=== PATIENT | male | born 1960 | race Caucasian/White ===

== ENCOUNTER 2018-09-15 11:00 | Outpatient (RCR) ==
--- NOTE | 2018-08-31 14:42 | RS.OPPTEV2 ---
Date of Note: 08/31/18 Visit #: 1 Number of visits approved by Insurance: n/a Date of Evaluation: 08/31/18 Payer Source: Insurance Surgery Performed?: No Treatment Diagnosis: Low back pain radiating into R hip History of Condition/Mechanism of Injury:: pt presents with low back pain that began 07/27/18, pt has a history of episodes of LBP over the last few years. Prior Level of Function.....Patient was independent with: ADL's, Self Care, Work /Vocation, Ambulation/Mobility, Community Integration/Access Level of Function: pt works at the [employer] Functional Limitations: Sitting, Standing, Bending, Squatting, Ambulation Current Subjective/complaints:: pt reports his LBP "flared up" 07/27/18 and has continued to increase. pt reports pain increases if sits or stands too long. Reports he has a desk at work that will elevate so that he can work while standing or sitting to help LBP. Treatment Side (optional): N/A *Precautions: n/a Medical History Medical History: Hypertension, Cancer (thyroid) Medical History Comments:: R acetabular fx (as a young teenager) Smoking Status: Current some day smoker Hx Home Medications: zyrtec, omeprazol, BP meds, synthroid, diclofenac, norco, Patient's Goals: decrease low back pain Pain Assessment - Pain Description Pain Location: lumbar radiating into R hip Pain Description: Burning, Aching Current Pain Intensity: 7/10 Worst Pain Intensity: 10/10 Functional Outcome Measure Oswestry LBP: 28 - G Codes & Severity Modifier G Codes & Modifier: n/a Source of G Code score: n/a Observation - Observation Inspection: R LE ext rotates. BLE hamstring tightness R worse than L. BLE piriformis tightess L worse than R Posture: Forward Head, Rounded Shoulders, Increased Thoracic Kyphosis, Decreased Lumbar Lordosis Handedness: Right Gait - Gait Pattern General Gait Pattern Observation: No Deviations/Normal General Range of Motion: BUE WFL's. BLE WFL's Muscle Strength: BUE 5/5. BLE hip flex 5/5 with discomfort, knee flex/ext 5/5 - ROM Lumbar Flexion: Hand reach to patellae Sidebending to Left: Reach to Lateral Joint Line Sidebending to Right: Reach to Mid-thigh Lumbar Spine ROM Limitations: Soft Tissue Tightness, Muscle Weakness, Pain - Strength Trunk Extension: 4- Good- Trunk Flexion: 4- Good- Trunk Lateral Flexion: 4- Good- Trunk Rotation: 4- Good- - Special Tests MEME Test: Positive Left, Positive Right Seated Dural Stretch Test: Positive Left, Positive Right Comments: + hip scour on RLE Palpation Palpation Findings: Tenderness, Trigger Point, Muscle Guarding Comments:: pt with tenderness lumbar area with muscle guarding also noted. Trigger points noted to R lumbar area. Sensation - Sensation Right Upper Extremity: Intact/Normal Left Upper Extremity: Intact/Normal Right Lower Extremity: Intact/Normal Left Lower Extremity: Intact/Normal Balance - Sitting Balance Static Sitting Balance: Normal Dynamic Sitting Balance: Normal - Standing Balance Static Standing Balance: Normal Dynamic Standing Balance: Normal - Treatment Modality: Electrical Stim Unattended Parameters/Method Applied: IFC x 20 mins at 10 ma Treatment Area: lumbar Patient Position: Sitting - Heat/Cryotherapy Treatment: Hot Pack Comments:: with IFC to lumbar Interventions - Exercise/Activities/Manual Therapy Exercises/Activities: pt performed BLE piriformis stretch, hamstring stretch, standing lumbar extension Manual Therapy: n/a HOME EXERCISE PROGRAM: pt given written HEP including: pelvic tilt, hamstring stretch, piriformis stretch, standing lumbar ext - Charges Timed Code Treatment Minutes: 46 Total Treatment Time: 64 Procedures billed for this date of service:: eval low, estim unattended, hot pack EVALUATION COMPLEXITY LEVEL EVALUATION COMPLEXITY LEVEL: HISTORY: Low, EXAM OF BODY SYSTEMS: Medium, CLINICAL PRESENTATION: Low, CLINICAL DECISION MAKING: Low Assessment Assessment: pt presents with lumbar pain radiating into R hip, with muscle tightness, guarding and trigger points. pt also with muscle weakness. Feel pt would benefit from skilled PT for therex stretching, strengthening, as well as modalities to decrease pain and muscle tightness. Patient Education: Home Exercise Program, Education of Plan of Care Rehab Potential: Good Short Term Goals Goal #1: pt independent with initial HEP Goal to be met by: 09/21/18 Goal #2: Decrease LBP < 7/10 Goal to be met by: 09/21/18 Goal #3: Improve lumbar ROM w less pain Goal to be met by: 09/21/18 Goal #4: Decrease hamstring and piriformis tightness Goal to be met by: 09/21/18 Senior Living Goals Goal #1: pt report no radicular symptoms into LE Goal to be met by: 10/13/18 Goal #2: pt report increased ability to perform job responsibilities w less pain Goal to be met by: 10/13/18 Goal #3: Decrease pain to <5/10 Goal to be met by: 10/13/18 Goal #4: Improve Oswestry low back pain scale to <20 Goal to be met by: 10/13/18 Plan - Treatment to be Provided Procedures: Therapeutic Exercises, Therapeutic Activity, Manual Therapy, Massage , Patient Education Modalities: Electrical Stimulation, Cryotherapy, Hot Packs, Mechanical Traction - Treatment Plan Frequency: 2 X week Duration: 6 weeks Dates of Senior Living Goals: 10/13/18 Expiration date of current Insurance Approval:: n/a - Treatment Code (1) Lumbar back pain with radiculopathy affecting right lower extremity Code(s): M54.17 - RADICULOPATHY, LUMBOSACRAL REGION (2) Muscle tightness Code(s): M62.89 - OTHER SPECIFIED DISORDERS OF MUSCLE (3) Muscle weakness Code(s): M62.81 - MUSCLE WEAKNESS (GENERALIZED)
--- NOTE | 2018-09-04 14:27 | RS.OPPTDN ---
Subjective Date of Note: 09/04/18 Visit #: 2 Number of visits approved by Insurance: na Date of Evaluation: 08/31/18 Payer Source: Insurance Treatment Diagnosis: Low back pain radiating into R hip Current Subjective/complaints:: Reports R sided lumbar pain today ,also adiates into the R posterior thigh. *Precautions: n/a Pain Assessment - Pain Description Pain Location: lumbar /R hip Pain Description: Radiating, Dull, Aching, Chronic Current Pain Intensity: 7 - Treatment Modality: Electrical Stim Unattended Parameters/Method Applied: 20 mins. high volt ,2 large electrodes @ 135 pv. Patient Position: Supine - Heat/Cryotherapy Treatment: Hot Pack (concurrent with e-stim) Interventions - Exercise/Activities/Manual Therapy Exercises/Activities: 20 mins. SKTC,90/90 hams. stretch,piriformis stretch, pelvic tilts.SI muscle energy for leg length correction Total minutes of Exercise: 20 Manual Therapy: n/a Total minutes of Manual Therapy: 0 HOME EXERCISE PROGRAM: pt given written HEP including: pelvic tilt, hamstring stretch, piriformis stretch, standing lumbar ext - Charges Timed Code Treatment Minutes: 20 Total Treatment Time: 40 Procedures billed for this date of service:: hp,e-stim ,ex 1 Assessment: Patient has moderate hamstring and piriformis tightness.Hamstring stretch elicits pain today.He does have corrected leg length today after muscle energy,was elevated on the R initially. Patient Education: Education of diagnosis, Body/Joint mechanics, Home Exercise Program, Home Safety, Activity Modification, Education of Plan of Care Short Term Goals Goal #1: pt independent with initial HEP Goal to be met by: 09/21/18 Progress towards Goal:: Progressing Goal #2: Decrease LBP < 7/10 Goal to be met by: 09/21/18 Goal #3: Improve lumbar ROM w less pain Goal to be met by: 09/21/18 Goal #4: Decrease hamstring and piriformis tightness Goal to be met by: 09/21/18 Assisted Goals Goal #1: pt report no radicular symptoms into LE Goal to be met by: 10/13/18 Goal #2: pt report increased ability to perform job responsibilities w less pain Goal to be met by: 10/13/18 Goal #3: Decrease pain to <5/10 Goal to be met by: 10/13/18 Goal #4: Improve Oswestry low back pain scale to <20 Goal to be met by: 10/13/18 Plan Dates of Assisted Goals: 10/13/18 Expiration date of current Insurance Approval:: na PLAN: Cont. skilled PT to reduce/eliminate back pain.
--- NOTE | 2018-09-08 16:30 | RS.OPPTDN ---
Subjective Date of Note: 09/08/18 Visit #: 3 Number of visits approved by Insurance: na Date of Evaluation: 08/31/18 Payer Source: Insurance Treatment Diagnosis: Low back pain radiating into R hip Current Subjective/complaints:: Reports stiffness ,has driven from [place], [place] today,approximately [address] *Precautions: n/a Pain Assessment - Pain Description Pain Location: lumbar Pain Description: Tightness, Dull, Aching Current Pain Intensity: 7/10 - Treatment Modality: Electrical Stim Unattended Parameters/Method Applied: 20 mins, high volt to lumbar ,channel 1 and 2 @ 150 pv. Patient Position: Supine - Heat/Cryotherapy Treatment: Hot Pack (concurrent with e-stim) Interventions - Exercise/Activities/Manual Therapy Exercises/Activities: 25 mins. SKTC,90/90 hams. stretch,piriformis stretch, pelvic tilts.LTR in hooklying. Total minutes of Exercise: 25 Manual Therapy: n/a Total minutes of Manual Therapy: 0 HOME EXERCISE PROGRAM: pt given written HEP including: pelvic tilt, hamstring stretch, piriformis stretch, standing lumbar ext - Charges Timed Code Treatment Minutes: 25 Total Treatment Time: 45 Procedures billed for this date of service:: hp,e-stim,ex2 Assessment: Patient reports only minimal relief today after therapy,possibly due to prolonged time in his car today.He hs oderate tightness in hamstrings , and the piriformis bilaterally.He is attentive to recommendations ,instructed to focus on stretching ,as opposed to strengthening at this time. Patient Education: Education of diagnosis, Body/Joint mechanics, Home Exercise Program, Home Safety, Activity Modification, Education of Plan of Care Patient demonstrates compliance with HEP?: Yes Short Term Goals Goal #1: pt independent with initial HEP Goal to be met by: 09/21/18 Progress towards Goal:: Progressing Goal #2: Decrease LBP < 7/10 Goal to be met by: 09/21/18 Progress towards Goal:: No Change Goal #3: Improve lumbar ROM w less pain Goal to be met by: 09/21/18 Progress towards Goal:: No Change Goal #4: Decrease hamstring and piriformis tightness Goal to be met by: 09/21/18 Progress towards Goal:: Progressing Halfway Goals Goal #1: pt report no radicular symptoms into LE Goal to be met by: 10/13/18 Goal #2: pt report increased ability to perform job responsibilities w less pain Goal to be met by: 10/13/18 Goal #3: Decrease pain to <5/10 Goal to be met by: 10/13/18 Goal #4: Improve Oswestry low back pain scale to <20 Goal to be met by: 10/13/18 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 skilled PT to reduce /eliminate lumbar pain .
--- NOTE | 2018-09-12 16:36 | RS.OPPTDN ---
Subjective Date of Note: 09/12/18 Visit #: 4 Number of visits approved by Insurance: na Date of Evaluation: 08/31/18 Payer Source: Insurance Treatment Diagnosis: Low back pain radiating into R hip Current Subjective/complaints:: Patient reports treatment and exercise is helping reduce his pain level overall. States he had to go out of town for w work meeting and the driving aggravated his pain level. *Precautions: n/a Pain Assessment - Pain Description Pain Location: lowback, LE's with R>L Current Pain Intensity: 6/10 - Treatment Modality: Electrical Stim Unattended Parameters/Method Applied: [id number] HVGC to 155p.v. with 4 large pads to the bilateral lowback and S-I joints with HP prior to EX. Patient Position: Supine - Heat/Cryotherapy Treatment: Hot Pack (with Estim ) Interventions - Exercise/Activities/Manual Therapy Exercises/Activities: 16mins. Assisted stretching of the bilateral hamstrings, SKTC, piriformis stretch. Isometric hip flexion, sets of 5rep. MET with isometric hip ext on the right. Pelvic tilts. Total minutes of Exercise: 16mins Manual Therapy: n/a HOME EXERCISE PROGRAM: pt given written HEP including: pelvic tilt, hamstring stretch, piriformis stretch, standing lumbar ext - Objective Findings Observations,measurements,etc.: Only slight leg length difference with 1/4" shift, but definite pain at the right S-I with palpation. - Charges Timed Code Treatment Minutes: 16mins Total Treatment Time: 40mins Procedures billed for this date of service:: HP, Estim unattended, EX Assessment: Patient reporting progress with treatment. Will need to progress trunk stabilization exercises, and may benefit from MET for pelvic alignment. 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
--- NOTE | 2018-09-15 12:48 | RS.OPPTDN ---
Subjective Date of Note: 09/15/18 Visit #: 5 Number of visits approved by Insurance: na Date of Evaluation: 08/31/18 Payer Source: Insurance Treatment Diagnosis: Low back pain radiating into R hip Current Subjective/complaints:: Patient reports the therapy is helping the back pain . *Precautions: n/a Pain Assessment - Pain Description Pain Location: lumbar/SI area Pain Description: Dull, Aching Current Pain Intensity: 6/10 Other Comments regarding Pain:: no radiating pain eric the legs today - Treatment Modality: Electrical Stim Unattended Parameters/Method Applied: 20 mins. high volt ,channel 1 on upper back @ 135pv, channel 2 on lumbar/SI @ 160 pv. Patient Position: Supine - Heat/Cryotherapy Treatment: Hot Pack (concurrent with e-stim) Interventions - Exercise/Activities/Manual Therapy Exercises/Activities: 20 mins. Assisted stretching of the bilateral hamstrings using contract-relax, SKTC, piriformis stretch , LTR in hooklying . Total minutes of Exercise: 20 Manual Therapy: n/a Total minutes of Manual Therapy: 0 HOME EXERCISE PROGRAM: pt given written HEP including: pelvic tilt, hamstring stretch, piriformis stretch, standing lumbar ext - Charges Timed Code Treatment Minutes: 20 Total Treatment Time: 40 Procedures billed for this date of service:: hp,e-stim,ex Assessment: Patient is progressing ,has improved hamstring extensibility ,is tighetr on the R ,compared to the L. We discussed pressure relief ,changing positions as often as necessary ,especially with driving longer distances.He is attentive and motivated to improve. Patient Education: Education of diagnosis, Body/Joint mechanics, Home Exercise Program, Home Safety, Activity Modification, Education of Plan of Care Patient demonstrates compliance with HEP?: Yes Short Term Goals Goal #1: pt independent with initial HEP Goal to be met by: 09/21/18 Progress towards Goal:: Progressing Goal #2: Decrease LBP < 7/10 Goal to be met by: 09/21/18 Progress towards Goal:: No Change Goal #3: Improve lumbar ROM w less pain Goal to be met by: 09/21/18 Progress towards Goal:: No Change Goal #4: Decrease hamstring and piriformis tightness Goal to be met by: 09/21/18 Progress towards Goal:: Progressing Drag Out Man Goals Goal #1: pt report no radicular symptoms into LE Goal to be met by: 10/13/18 Goal #2: pt report increased ability to perform job responsibilities w less pain Goal to be met by: 10/13/18 Goal #3: Decrease pain to <5/10 Goal to be met by: 10/13/18 Goal #4: Improve Oswestry low back pain scale to <20 Goal to be met by: 10/13/18 Plan Dates of Assisted Goals: 10/13/18 Expiration date of current Insurance Approval:: na PLAN: Cont. skilled PT to eliminate /reduce LBP.
== END 2018-09-19 23:59 ==
PROVIDERS: ATTEND Physician Assistant Surgical
DX: M54.5 Low back pain (principal)

== ENCOUNTER 2018-10-17 08:00 | Outpatient (RCR) ==
--- NOTE | 2018-09-25 11:22 | RS.OPPTDN ---
Subjective Date of Note: 09/25/18 Visit #: 6 Number of visits approved by Insurance: na Date of Evaluation: 08/31/18 Payer Source: Insurance Treatment Diagnosis: Low back pain radiating into R hip Current Subjective/complaints:: Patient reports tolerating the driving last week to [place] for vacation by getting out of the car about every 2 1/2 to 3 hours for pressure relief. *Precautions: n/a Pain Assessment - Pain Description Pain Location: lumbar Pain Description: Dull, Aching, Chronic Current Pain Intensity: 5/10 - Treatment Modality: Electrical Stim Unattended Parameters/Method Applied: 20 mins. high volt,channel 1 @140 pv,channel 2 @ 120 pv to lumbar and mid back. Patient Position: Supine - Heat/Cryotherapy Treatment: Hot Pack (concurrent with e-stim) Interventions - Exercise/Activities/Manual Therapy Exercises/Activities: 20 mins. Assisted stretching of the bilateral hamstrings using contract-relax, SKTC, piriformis stretch , LTR in hooklying . Total minutes of Exercise: 20 Manual Therapy: n/a Total minutes of Manual Therapy: 0 HOME EXERCISE PROGRAM: pt given written HEP including: pelvic tilt, hamstring stretch, piriformis stretch, standing lumbar ext - Charges Timed Code Treatment Minutes: 20 Total Treatment Time: 40 Procedures billed for this date of service:: hp,e-stim,ex Assessment: Patient has improved hip flexion past 90 today,also the L hamstring extensibility is improved .The R hamstring group is moderately tight,elicits back pain with stretch today.He does have improved standing posture after PT session today. Patient Education: Education of diagnosis, Body/Joint mechanics, Home Exercise Program, Home Safety, Activity Modification, Education of Plan of Care Patient demonstrates compliance with HEP?: Yes Short Term Goals Goal #1: pt independent with initial HEP Goal to be met by: 09/21/18 Progress towards Goal:: Progressing Goal #2: Decrease LBP < 7/10 Goal to be met by: 09/21/18 (5 today) Progress towards Goal:: Progressing Goal #3: Improve lumbar ROM w less pain Goal to be met by: 09/21/18 Progress towards Goal:: Progressing (progressing on L .R group still moderately tight) Goal #4: Decrease hamstring and piriformis tightness Goal to be met by: 09/21/18 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 skilled PT to reduce /eliminate back pain.
--- NOTE | 2018-09-28 11:15 | RS.OPPTDN ---
Subjective Date of Note: 09/28/18 Visit #: 7 Number of visits approved by Insurance: na Date of Evaluation: 08/31/18 Payer Source: Insurance Treatment Diagnosis: Low back pain radiating into R hip Current Subjective/complaints:: Patient reports the R buttocks pain is bothering him more today,as opposed to the lumbar area. *Precautions: n/a Pain Assessment - Pain Description Pain Location: lumbar /R hip Pain Description: Tightness, Radiating, Aching, Chronic Current Pain Intensity: 6/10 - Heat/Cryotherapy Treatment: Hot Pack (20 mins. prior to exercises to the back and bilateral hamstrings) Interventions - Exercise/Activities/Manual Therapy Exercises/Activities: 40 mins. Assisted stretching of the bilateral hamstrings using contract-relax, SKTC, DKTC,piriformis stretch , LTR in hooklying . Patient education regarding ergonomics,sitting posture at work,anterior vs. posterior pelvic tilt positioning. Total minutes of Exercise: 40 Manual Therapy: n/a Total minutes of Manual Therapy: 0 HOME EXERCISE PROGRAM: pt given written HEP including: pelvic tilt, hamstring stretch, piriformis stretch, standing lumbar ext - Objective Findings Observations,measurements,etc.: L hamstring stretch demos -45 from full knee extension , R hamstring stretch demos -52 from full knee extension (test done in modified supine , 90/90 start position ) - Charges Timed Code Treatment Minutes: 40 Total Treatment Time: 60 Procedures billed for this date of service:: hp,ex 3 Assessment: Patient has increased awareness of sitting posture and positioning of the legs due to hamstring tightness.He has pain elevated with R piriformis stretch today.He reports popping sensation @ L4 L5 level when returning the R LE from flexed position.He is attentive to recommendations for the back care. Patient Education: Body/Joint mechanics, Home Exercise Program, Activity Modification, Education of Plan of Care Patient demonstrates compliance with HEP?: Yes Short Term Goals Goal #1: pt independent with initial HEP Goal to be met by: 09/21/18 Progress towards Goal:: Progressing Goal #2: Decrease LBP < 7/10 Goal to be met by: 09/21/18 (6 today) Progress towards Goal:: Progressing Goal #3: Improve lumbar ROM w less pain Goal to be met by: 09/21/18 Progress towards Goal:: Progressing (progressing on L .R group still moderately tight) Goal #4: Decrease hamstring and piriformis tightness Goal to be met by: 09/21/18 (slow improvement on L ,very minimal on the R) Progress towards Goal:: Progressing Group Home Goals Goal #1: pt report no radicular symptoms into LE Goal to be met by: 10/13/18 Progress towards goal: Regressing (radiating into the R buttock,increases with piriformis stretch) Goal #2: pt report increased ability to perform job responsibilities w less pain Goal to be met by: 10/13/18 (na today,been on 2 week vacation) Goal #3: Decrease pain to <5/10 Goal to be met by: 10/13/18 Progress towards goal: Progressing Goal #4: Improve Oswestry low back pain scale to <20 Goal to be met by: 10/13/18 Plan Dates of Group Home Goals: 10/13/18 Expiration date of current Insurance Approval:: na PLAN: Cont. skilled PT to reduce /eliminate LBP,improve flexibility of the lumbar and LE's.
--- NOTE | 2018-10-03 11:22 | RS.OPPTDN ---
Subjective Date of Note: 10/03/18 Visit #: 8 Number of visits approved by Insurance: na Date of Evaluation: 08/31/18 Payer Source: Insurance Treatment Diagnosis: Low back pain radiating into R hip Current Subjective/complaints:: Patient reports the pain continues to be more in the R buttocks and into the upper thigh.The relief is lasting a day or two per patient report.He has follow-up appt. at [facility] in [place], [place] tomorrow. *Precautions: n/a Pain Assessment - Pain Description Pain Location: R buttocks /upper thigh Pain Description: Radiating, Dull, Aching, Chronic Current Pain Intensity: 6-7/10 - Heat/Cryotherapy Treatment: Hot Pack (20 mins. prior to exercises) Interventions - Exercise/Activities/Manual Therapy Exercises/Activities: 40 mins. Assisted stretching of the bilateral hamstrings using contract-relax, SKTC, DKTC,piriformis stretch , LTR in hooklying .Manual intermittent distraction to the lumbar spine at end of session. Total minutes of Exercise: 40 Manual Therapy: n/a Total minutes of Manual Therapy: 0 HOME EXERCISE PROGRAM: pt given written HEP including: pelvic tilt, hamstring stretch, piriformis stretch, standing lumbar ext - Charges Timed Code Treatment Minutes: 40 Total Treatment Time: 60 Procedures billed for this date of service:: ex 3,hp Assessment: Patient reports the intensity of the pain stays about the same,but has lessened in the back after therapy sessions.The R buttocks radiating pain is still present after treatment.He is attentive and motivated to improve .The pain elevates in the R hip and back with R hamstring stretches today.L hamstring stretches do not affect the lumbar area.The R piriformis stretch does not relieve the sciatica. Patient Education: Education of diagnosis, Body/Joint mechanics, Home Exercise Program, Home Safety, Activity Modification, Education of Plan of Care Patient demonstrates compliance with HEP?: Yes Short Term Goals Goal #1: pt independent with initial HEP Goal to be met by: 09/21/18 Progress towards Goal:: Progressing Goal #2: Decrease LBP < 7/10 Goal to be met by: 09/21/18 (6-7) Progress towards Goal:: No Change Goal #3: Improve lumbar ROM w less pain Goal to be met by: 09/21/18 Progress towards Goal:: No Change (progressing on L .R group still moderately tight) Goal #4: Decrease hamstring and piriformis tightness Goal to be met by: 09/21/18 (slow improvement on L ,very minimal on the R) Progress towards Goal:: Progressing Snf Goals Goal #1: pt report no radicular symptoms into LE Goal to be met by: 10/13/18 Progress towards goal: No Change (radiating into the R buttock,increases with piriformis stretch) Goal #2: pt report increased ability to perform job responsibilities w less pain Goal to be met by: 10/13/18 Progress towards goal: No Change Goal #3: Decrease pain to <5/10 Goal to be met by: 10/13/18 Progress towards goal: No Change Goal #4: Improve Oswestry low back pain scale to <20 Goal to be met by: 10/13/18 Plan Dates of Snf Goals: 10/13/18 Expiration date of current Insurance Approval:: na PLAN: Continue skilled PT to reduce /eliminate LB and hip pain.Discussed with patient and supervising PT to begin mechanical lumbar traction to asist reducing his symptoms.
--- NOTE | 2018-10-09 14:13 | RS.OPPTDN ---
Subjective Date of Note: 10/09/18 Visit #: 9 Number of visits approved by Insurance: na Date of Evaluation: 08/31/18 Payer Source: Insurance Treatment Diagnosis: Low back pain radiating into R hip Current Subjective/complaints:: Patient report treatment helps reduce his pain level but pain returns as well as LE radicular symptoms. *Precautions: n/a Pain Assessment - Pain Description Pain Location: bilateral lowback and right hip, with radicular symptoms into right LE. Pain Description: Dull, Aching Current Pain Intensity: mild to mod - Treatment Modality: Electrical Stim Unattended Parameters/Method Applied: [id number] HVGC to 145p.v to bilateral lumbar paraspinals with HP prior to TX. Patient Position: Supine - Heat/Cryotherapy Treatment: Hot Pack (with Estim ) - Traction Treatment Method: Mechanical, Intermittent, Lumbar Patient Position: Supine Amount of Force Applied: 95# Hold Time: 30sec Rest Time: 5sec Duration of treatment: 14mins Interventions - Exercise/Activities/Manual Therapy Exercises/Activities: Discussion of HEP. No new additions. Total minutes of Exercise: 2mins Manual Therapy: n/a HOME EXERCISE PROGRAM: pt given written HEP including: pelvic tilt, hamstring stretch, piriformis stretch, standing lumbar ext - Objective Findings Observations,measurements,etc.: Patient presents to department with physicians order to continue therapy for 8 more sessions. - Charges Timed Code Treatment Minutes: 5mins Total Treatment Time: 50mins Procedures billed for this date of service:: HP, Estim unattended, TX mechanical Assessment: Patient reporting good response to treatment, but continued LBP and right LE radicular symptoms. Patient Education: Body/Joint mechanics, Home Exercise Program Comments: Patient education of benefits of mechanical lumbar traction. Patient demonstrates compliance with HEP?: Yes Short Term Goals Goal #1: pt independent with initial HEP Goal to be met by: 09/21/18 Progress towards Goal:: Progressing Goal #2: Decrease LBP < 7/10 Goal to be met by: 09/21/18 (6-7) Progress towards Goal:: No Change Goal #3: Improve lumbar ROM w less pain Goal to be met by: 09/21/18 Progress towards Goal:: No Change (progressing on L .R group still moderately tight) Goal #4: Decrease hamstring and piriformis tightness Goal to be met by: 09/21/18 (slow improvement on L ,very minimal on the R) Progress towards Goal:: Progressing Materials Tech Goals Goal #1: pt report no radicular symptoms into LE Goal to be met by: 10/13/18 Progress towards goal: No Change (radiating into the R buttock,increases with piriformis stretch) Goal #2: pt report increased ability to perform job responsibilities w less pain Goal to be met by: 10/13/18 Progress towards goal: No Change Goal #3: Decrease pain to <5/10 Goal to be met by: 10/13/18 Progress towards goal: No Change Goal #4: Improve Oswestry low back pain scale to <20 Goal to be met by: 10/13/18 Plan Dates of Materials Tech Goals: 10/13/18 Expiration date of current Insurance Approval:: 10/13/18 PLAN: Continue treamtent as ordered with progression of mechanical lumbar traction to reduce pain and right LE radicular symptoms. PT to reassess patient progress and treatment goals.
--- NOTE | 2018-10-17 09:00 | RS.QUICKDC ---
Discharge from PT Date of Discharge: 10/17/18 Number of Visits: 9 Reason for Discharge: Patient reports temporary relief only.He has good understanding of HEP.He agrees with D/C plan at this time.He returns to the next week for follow-up.
== END 2018-10-20 23:59 ==
PROVIDERS: ATTEND Physician Assistant Surgical
DX: M54.5 Low back pain (principal)